=== PATIENT | male | born 1970 | race Caucasian/White ===

== ENCOUNTER 2020-06-21 09:19 | Emergency (ER) | payer OTHER ==
[~2020-06-21] VITALS: Wt 117.9 kg
[~2020-06-21 09:19] MED LIST: FLEXERIL10 MG PO; LIPITOR20 MG PO; MOTRIN600 MG PO
[2020-06-21] MEDS ORDERED: HYDROCODON-ACE1 EACH PO (12:49)
== END 2020-06-21 13:05 | disposition home or self-care (01) ==
LOC: ED 09:19
DX: S93.331A Other subluxation of right foot, initial encounter (principal); Z79.899 Other long term (current) drug therapy; X50.1XXA Overexertion from prolonged static or awkward postures, initial encounter; Y93.89 Activity, other specified; Y92.89 Other specified places as the place of occurrence of the external cause; Y99.8 Other external cause status

== ENCOUNTER 2020-12-06 13:13 | Emergency (ER) | payer OTHER ==
[~2020-12-06] VITALS: Ht 177.8 cm; Wt 117.9 kg
[~2020-12-06 13:13] MED LIST changes: +HYDROCODON-ACE1 EACH PO
[2020-12-06] MEDS ORDERED: CEPHALEXIN500 M1 PO (19:06)
== END 2020-12-06 20:09 | disposition home or self-care (01) ==
LOC: ED 13:13
DX: S61.432A Puncture wound without foreign body of left hand, initial encounter (principal); Z79.899 Other long term (current) drug therapy; W26.0XXA Contact with knife, initial encounter; Y93.89 Activity, other specified; Y92.89 Other specified places as the place of occurrence of the external cause; Y99.0 Civilian activity done for income or pay